=== PATIENT | female | born 1945 | race Caucasian/White ===

== ENCOUNTER 2017-09-10 16:54 | Emergency (ER) | payer MEDICARE ==
[2017-09-10] MEDS ORDERED: NS 0.9% 1000 ML* 1,000 ML IV ONE (17:35)
--- NOTE | 2017-09-10 18:04 | ED ---
John Linn Julia, scribed for Leilani Abrams MD on 09/10/17 at 1710 . Abdominal Pain/Female - HPI Summary HPI Summary: This patient is a 71 year old F BIBA to [facility] with a chief complaint sudden severe diffuse abdominal pain lasting 30 -45 minutes with diaphoresis. She states she took a couple of TUMS and lied down and napped after pain slightly resolved. She states pain worsening again after waking. Patient describes BM as rabbit poop for the past few weeks. Pt had BM this morning - no blood, no black. Patient denies nausea, vomiting, bloody or black stool, constipation, dysuria, vaginal prolapse, or new back pain. She states her pain is currently resolved but states she feels bloated. She believes symptoms will be aggravated by walking and movement. Patient has a history of gallstones, without disease of the gallbladder. A colonoscopy in 2004 was negative. Patient s PCP is Dr. Gardner - pt had an appt on Wednesday with him regarding her stools. Pt states does not feel constipated. Pt states no h.o similar No h.o abdominal surgery Medications and allergies reviewed. - History of Current Complaint Chief Complaint: EDAbdPain Stated Complaint: ABD PAIN Time Seen by Provider: 09/10/17 16:56 Hx Obtained From: Patient Onset/Duration: Sudden Onset, Lasting Minutes - 30-45, Resolved Severity Initially: Severe Severity Currently: Mild Pain Intensity: 1 Location: Discrete At: LUQ, Discrete At: LLQ Radiates: No Character: Other: - "bloating" Aggravating Factor(s): Movement - and walking Alleviating Factor(s): Position, Antacids, Other: - lying down Associated Signs and Symptoms: Positive: Negative - vaginal prolapse, Diaphoresis, Other: - chagnes in BM and "irreugular pulse". Negative: Back Pain , Constipation, Blood in Stool, Urinary Symptoms, Nausea, Vomiting, Diarrhea Allergies/Adverse Reactions: Allergies Allergy/AdvReac Type Severity Reaction Status Date / Time No Known Allergies Allergy Verified 10/14/15 13:54 PMH/Surg Hx/FS Hx/Imm Hx Previously Healthy: Yes Cardiovascular History: Reports: Hx Hypertension Respiratory History: Reports: Hx Asthma GI History: Reports: Other GI Disorders - gall stones Musculoskeletal History: Reports: Hx Back Problems Denies: Hx Osteoporosis - Cancer History Hx Chemotherapy: No Hx Radiation Therapy: No - Surgical History Surgery Procedure, Year, and Place: denies Infectious Disease History: No Infectious Disease History: Denies: Traveled Outside the [place] in Last 30 Days - Family History Known Family History: Negative: Cardiac Disease, Diabetes - Social History Occupation: Retired Lives: Alone Alcohol Use: Occasionally Hx Substance Use: No Substance Use Type: Reports: None Hx Tobacco Use: Yes - many years ago Smoking Status (MU): Former Smoker Type: Cigarettes Review of Systems Positive: Skin Diaphoresis Positive: Other - "irregular pulse" Gastrointestinal: Negative - constipation, bloody/black stool, Other - stool changes - "rabbit poop" and "bloating" Positive: Abdominal Pain. Negative: Vomiting, Diarrhea, Nausea Genitourinary: Negative - vaginal prolapse Positive: no symptoms reported. Negative: dysuria Negative: Myalgia - new back pain All Other Systems Reviewed And Are Negative: Yes Physical Exam Triage Information Reviewed: Yes Vital Signs On Initial Exam: Initial Vitals Temp Pulse Resp BP Pulse Ox 98.6 F 70 18 204/84 97 09/10/17 16:58 09/10/17 16:58 09/10/17 16:58 09/10/17 16:58 09/10/17 16:58 Vital Signs Reviewed: Yes Appearance: Positive: Well-Appearing, No Pain Distress, Well-Nourished Skin: Positive: Warm, Skin Color Reflects Adequate Perfusion, Dry Head/Face: Positive: Normal Head/Face Inspection Eyes: Positive: Normal, EOMI, JOE ENT: Positive: Normal ENT inspection, Hearing grossly normal, Pharynx normal, TMs normal Neck: Positive: Supple, Nontender, No Lymphadenopathy Respiratory/Lung Sounds: Positive: Clear to Auscultation, Breath Sounds Present , Decreased Breath Sounds Cardiovascular: Positive: Normal, RRR Abdomen Description: Positive: No Organomegaly, Soft. Negative: Nontender - + TTP LLQ no guarding, no rebound abd soft + BS Bowel Sounds: Positive: Present Musculoskeletal: Positive: Normal Neurological: Positive: Normal, Sensory/Motor Intact, Alert, Oriented to Person Place, Time Psychiatric: Positive: Normal AVPU Assessment: Alert - Betito Coma Scale Best Eye Response: 4 - Spontaneous Best Motor Response: 6 - Obeys Commands Best Verbal Response: 5 - Oriented Coma Scale Total: 15 Diagnostics - Vital Signs Vital Signs Temp Pulse Resp BP Pulse Ox 09/10/17 17:06 74 97 09/10/17 16:58 98.6 F 70 18 204/84 97 - Laboratory Result Diagrams: 09/10/17 17:55 09/10/17 17:55 Lab Statement: Any lab studies that have been ordered have been reviewed, and results considered in the medical decision making process. - EKG No standard instances Cardiac Rate: NL EKG Rhythm: Sinus Rhythm ST Segment: Normal Ectopy: None Re-Evaluation - Re-Evaluation 1 Re-Evaluation Time: 18:15 Comment: Patient is slightly nauseated. Pt decline nausea meds while drinking contrast. Second Eval Re-Evaluation Time: 19:00 Change: Worse - Pt with increased nausea and discomfort following contrast requesting analgesia CT pending pt signed out Dr. Henley Abdominal Pain Fem Course/Dx - Course Course Of Treatment: Pt episode of severe diffuse abd pain today starting after lunch. Pt states sx improved with rest but returned. Pt reports little relief with TUMS, flatus - called EMS. Pain has now improved - continues with movement. Pt with LLQ pain on exam. will check labs, urine, CT. pt declined analgesia or antiemetic at this time - Diagnoses Provider Diagnoses: Abdominal pain Discharge - Sign-Out/Discharge Documenting (check all that apply): Sign-Out Patient Signing out patient TO: Josias Henley - 1899 CT, urine pending - Discharge Plan Referrals: Tata Gardner MD [Primary Care Provider] - The documentation as recorded by the John vazquez Julia accurately reflects the service I personally performed and the decisions made by , Leilani Abrams MD.
[2017-09-10 18:22] LABS: ABS Basophils 0 10^3/ul (0-0.2); ABS Eosinophils 0 10^3/ul (0-0.6); ABS Lymphocytes 1.3 10^3/ul (1.0-4.8); ABS Monocytes 0.4 10^3/ul (0-0.8); ABS Neutrophils 5.1 10^3/ul (1.5-7.7); ABS Nucleated RBC 0 10^3/ul; Eosinophil % 0.5 % (0-6); Hematocrit 40 % (35-47); Lymphocyte % 19.5 % (25-47); Mean Corpuscular HGB Conc 35 g/dl (31-36); Mean Corpuscular Hemoglobin 33 pg (27-31); Mean Corpuscular Volume 96 fL (80-97); Mean Platelet Volume 7.7 um3 (7.4-10.4); Nucleated Red Blood Cells % 0; Platelet Count 258 10^3/ul (150-450); Red Blood Count 4.22 10^6/ul (4.0-5.4); Red Cell Distribution Width 14 % (10.5-15); White Blood Count 6.9 10^3/ul (3.5-10.8)
[2017-09-10 18:27] LABS: Urine Appearance Clear; Urine Blood Negative (Negative); Urine Color Straw; Urine Ketones Negative (Negative); Urine Protein Negative (Negative); Urine Specific Gravity 1.009 (1.010-1.030); Urine Urobilinogen Negative (Negative)
[2017-09-10 18:38] LABS: EGFR Non-African American 52.1 (>60)
[2017-09-10] MEDS ORDERED: Ondansetron INJ* 2 MG/ML VIAL IV ONE ×2 (19:06→19:35)
[2017-09-10] MEDS ORDERED: Morphine INJ* 2 MG/ML 1 ML CARPUJECT IV ONE (19:06)
[2017-09-10] MEDS ORDERED: Iodixanol* (CONTRAST) 320 MG/ML 100 ML SDV IV ONE (19:24)
[2017-09-10] MEDS ORDERED: Morphine INJ* 4 MG/ML 1 ML SYRINGE (NEW SYRINGE VERSION) IV ONE (19:35)
[2017-09-10] MEDS ORDERED: Famotidine IV* 10 MG/ML 2 ML (20 mg) IV SLOW PU ONE (19:36)
--- NOTE | 2017-09-10 20:51 | RAD ---
CLINICAL HISTORY: Abdominal pain, left lower quadrant pain COMPARISON: None TECHNIQUE: Multiple contiguous axial CT scans were obtained of the abdomen and pelvis after the administration of intravenous contrast. Coronal and sagittal multiplanar reformations are submitted for review. Oral contrast was administered. Delayed images were obtained through the abdomen and pelvis. FINDINGS: LUNG BASES: The lung bases are clear. LIVER: The liver is diffusely low in attenuation compared to the spleen. There are no focal hepatic parenchymal masses. BILE DUCTS: There is no intrahepatic or extrahepatic biliary dilatation. GALLBLADDER: Multiple gallstones are noted. There is no pericholecystic inflammatory change. PANCREAS: The pancreas is normal, without mass or ductal dilatation. SPLEEN: Normal in size and appearance. UPPER GI TRACT: Evaluation of the gastrointestinal tract is limited by incomplete gastric distention. The upper GI tract is unremarkable. SMALL BOWEL AND MESENTERY: The small bowel is normal in contour, course, and caliber. There is no obstruction or dilatation. COLON: The colon is normal in contour, course, caliber. There is no pericolonic inflammatory change. ADRENALS: Normal bilaterally. KIDNEYS: The kidneys are normal in shape, size, contour, and axis. There is no hydronephrosis or nephrolithiasis. BLADDER: The bladder is smooth in contour. PELVIC ORGANS: The uterus and adnexa are grossly normal for technique. AORTA: There is calcific atherosclerotic disease of the abdominal aorta and its branches, without aneurysmal dilatation IVC: Unremarkable LYMPH NODES: There is no lymphadenopathy by size criteria. ABDOMINAL WALL: There is no evidence for abdominal wall hernia. BONES AND SOFT TISSUES: There is a scoliotic curvature of the spine. There is grade 1 anterolisthesis of L4 on L5. Degenerative changes are noted of the spine. OTHER: None IMPRESSION: 1. FATTY INFILTRATION OF THE LIVER. 2. CHOLELITHIASIS. 3. ATHEROSCLEROSIS.
[2017-09-10 21:10] VITALS: BP 177/81
--- NOTE | 2017-09-11 20:25 | ED ---
Moise Linn Sixian, scribed for Josias Henley MD on 09/10/17 at 1928 . Re-Evaluation - Re-Evaluation 1 Re-Evaluation Time: 18:15 Comment: Patient is slightly nauseated. Pt decline nausea meds while drinking contrast. Second Eval Re-Evaluation Time: 19:37 Change: Worse - Pt states after drinking contrast she is beginning to have return of abdominal pain. pt states she is feeling fullness in her abdomen and pain in RUQ. Pt states also associated mild nausea. Pt repeat abdominal exam nontender, soft, NABS, negative Bee's and McBurney's pt tenderness. will give IV analgesia and IV antiemetic. Will await CT abd/pel. Third Eval Re-Evaluation Time: 21:13 Change: Improved - pt abdominal pain resolved. pt tolerating po without difficulty. pt resting comfortably in bed. Pt repeat abdominal exam NT/ND NABS. Pt symptoms consistent with colitis vs. enteritis vs gastritis. Plan for symptomatic tx with close f/u. pt Course/Dx - Course Course Of Treatment: Pt episode of severe diffuse abd pain today starting after lunch. Pt states sx improved with rest but returned. Pt reports little relief with TUMS, flatus - called EMS. Pain has now improved - continues with movement. Pt with LLQ pain on exam. will check labs, urine, CT. pt declined analgesia or antiemetic at this time - Diagnoses Provider Diagnoses: Abdominal pain Discharge - Sign-Out/Discharge Documenting (check all that apply): Discharge, Receiving Sign-Out Receiving patient FROM: Leilani Abrams - Pending CT A/P, awaiting disposition. - Discharge Plan Condition: Improved Disposition: HOME Prescriptions: Dicyclomine CAP* [Bentyl CAP*] 10 mg PO TID PRN #10 cap PRN Reason: Pain Ondansetron TAB* [Zofran 4 MG Tab*] 4 mg PO Q6H PRN #6 tab PRN Reason: Nausea Patient Education Materials: Abdominal Pain (ED), Gas and Bloating (ED) Referrals: Tata Gardner MD [Primary Care Provider] - 2 Days - Billing Disposition and Condition Condition: IMPROVED Disposition: HOME The documentation as recorded by the Moise vazquez Sixian accurately reflects the service I personally performed and the decisions made by me, Josias Henley MD.
== END 2017-09-10 21:50 | disposition home or self-care (01) ==
LOC: ED 16:54
DX: R10.32 Left lower quadrant pain (principal); K80.20 Calculus of gallbladder without cholecystitis without obstruction; Z87.891 Personal history of nicotine dependence
CPT/HCPCS: 36415; 74177; 80053; 81003; 83605; 83690; 83735; 84484; 85025; 93005; 96374; 96375; 99283; J2270; J2405; Q9967

== ENCOUNTER 2017-12-27 06:23 | Day surgery (SDC) | payer MEDICARE ==
[~2017-12-27 06:23] MED LIST: Acetaminophen TAB* 325 MG PO PRN; Buffered Lidocaine 0.9% SYRIN* 5 ML/SYR SYRINGE INTRADERM ONE
[2017-12-27] MEDS ORDERED: fentaNYL* 50 MCG/ML 2 ML VIAL (100 MCG VIAL) ONE (07:17)
[2017-12-27] MEDS ORDERED: Midazolam* 1 MG/ML 2 ML VIAL (2 MG) ONE (07:17)
[2017-12-27 08:07] VITALS: BP 152/76
[2017-12-27] MEDS ORDERED: Neomycin/Polymy/Dex OPHTH.OIN* 3.5 GM ONE (09:04)
[2017-12-27] MEDS ORDERED: Cyclopentolate 1% OPTH.SOL* 2 ML BTL ONE (09:04)
[2017-12-27] MEDS ORDERED: Ketorolac 0.5% OPHTH (NF) 0.5 % 5 ML BTL ONE (09:04)
[2017-12-27] MEDS ORDERED: Lidocaine 1%* 5 ML VIAL ONE (09:04)
[2017-12-27] MEDS ORDERED: acetaZOLAMIDE TAB* 250 MG ONE (09:04)
[2017-12-27] MEDS ORDERED: Phenylephrine 2.5% OPTH.SOL* 2 ML BTL ONE (09:04)
[2017-12-27] MEDS ORDERED: Tropicamide 1% OPTH.SOL* BTL ONE (09:04)
[2017-12-27] MEDS ORDERED: Tetracaine 0.5% OPTH.SOL 4 ML* 1 DROP BTL ONE (09:04)
[2017-12-27] MEDS ORDERED: Povidone Iodine 5% OPTH* 30 ML BTL ONE (09:04)
--- NOTE | 2017-12-28 02:45 | OP ---
DATE OF OPERATION: 12/27/17 - [facility] DATE OF : 43 SURGEON: Aniket Abreu MD ANESTHESIA: Monitored anesthesia care. PRE-OP DIAGNOSIS: Cataract, left eye. POST-OP DIAGNOSIS: Cataract, left eye. OPERATIVE PROCEDURE: Extracapsular cataract extraction of the left eye with intraocular lens implant. IMPLANTS: SN60WF 25.0 diopter lens to the left eye. COMPLICATIONS: None. DESCRIPTION OF PROCEDURE: The patient was given phenylephrine 2.5% and cyclopentolate 1% eye drops to the operative eye in the preoperative area. The patient was taken to the operating room where a time-out was taken to identify the correct patient, site, and side of the surgery. The patient's left eye was prepped and draped in the usual sterile fashion with 5% Betadine. A second time -out was taken to verify the correct patient, site and side of the surgery and correct lens implant. A lid speculum was placed to the left eye. A 1-mm paracentesis blade was used to make a clear corneal incision in the inferotemporal position. Preservative-free 1% lidocaine was injected into the anterior chamber. DisCoVisc was then injected into the anterior chamber. A 2.75-mm keratome blade was used to make a triplanar incision at the superotemporal position. A cystotome initiated a capsulorrhexis, which was completed with Utrata forceps in a continuous and curvilinear manner. Hydrodissection of the lens was performed with BSS on a cannula. The lens could be spun in the capsular bag. The phacoemulsification handpiece was used with a [id number] technique to remove the nucleus with 29.17 CDE. The I /A handpiece then removed the residual cortical lens material. DisCoVisc was injected to inflate the capsular bag. The planned SN60WF 25.0 diopter lens was injected into the capsular bag. The residual DisCoVisc was removed from the eye with the I/A handpiece. The corneal incisions were hydrated and no leaks occurred at physiologic pressure around 20 mmHg per palpation. The lid speculum was removed and drapes removed. Maxitrol ointment was placed on the surface of the operative eye. Adhesive patch and shield were then placed on the operative eye. The patient was taken to the postoperative area in stable condition. [id number]/[facility] #: [id number] MTDJustino
== END 2017-12-27 08:13 | disposition home or self-care (01) ==
LOC: OREAST 06:23
PROVIDERS: ATTEND Student in an Organized Health Care Education/Training Program
DX: H25.811 Combined forms of age-related cataract, right eye (principal); H43.811 Vitreous degeneration, right eye; E78.5 Hyperlipidemia, unspecified; I10 Essential (primary) hypertension; E78.2 Mixed hyperlipidemia; E03.9 Hypothyroidism, unspecified; M81.0 Age-related osteoporosis without current pathological fracture; M25.559 Pain in unspecified hip; J45.909 Unspecified asthma, uncomplicated; I70.0 Atherosclerosis of aorta; F41.8 Other specified anxiety disorders
CPT/HCPCS: A9270-GY; J2250; J3010; V2632

== ENCOUNTER 2018-01-03 06:24 | Day surgery (SDC) | payer MEDICARE ==
[2018-01-03] MEDS ORDERED: Midazolam* 1 MG/ML 2 ML VIAL (2 MG) ONE (07:20)
[2018-01-03 08:00] VITALS: BP 152/84
[2018-01-03] MEDS ORDERED: Cyclopentolate 1% OPTH.SOL* 2 ML BTL ONE (09:31)
[2018-01-03] MEDS ORDERED: Tetracaine 0.5% OPTH.SOL 4 ML* 1 DROP BTL ONE (09:31)
[2018-01-03] MEDS ORDERED: acetaZOLAMIDE TAB* 250 MG ONE (09:31)
[2018-01-03] MEDS ORDERED: Tropicamide 1% OPTH.SOL* BTL ONE (09:31)
[2018-01-03] MEDS ORDERED: Neomycin/Polymy/Dex OPHTH.OIN* 3.5 GM ONE (09:31)
[2018-01-03] MEDS ORDERED: Ketorolac 0.5% OPHTH (NF) 0.5 % 5 ML BTL ONE (09:31)
[2018-01-03] MEDS ORDERED: Povidone Iodine 5% OPTH* 30 ML BTL ONE (09:31)
[2018-01-03] MEDS ORDERED: Phenylephrine 2.5% OPTH.SOL* 2 ML BTL ONE (09:31)
[2018-01-03] MEDS ORDERED: Lidocaine 1%* 5 ML VIAL ONE (09:31)
--- NOTE | 2018-01-03 13:03 | OP ---
DATE OF OPERATION: 01/03/18 - [facility] DATE OF : 43 SURGEON: Aniket Abreu MD ANESTHESIA: Monitored anesthesia care. PRE-OP DIAGNOSIS: Cataract, right eye. POST-OP DIAGNOSIS: Cataract, right eye. OPERATIVE PROCEDURE: Extracapsular cataract extraction of the right eye with intraocular lens implant. IMPLANTS: SN60WF 24.5 diopter lens to the right eye. COMPLICATIONS: None. DESCRIPTION OF PROCEDURE: The patient was given phenylephrine 2.5% and cyclopentolate 1% eye drops to the operative eye in the preoperative area. The patient was taken to the operating room where a time-out was taken to identify the correct patient, site, and side of surgery. The patient's right eye was prepped and draped in the usual sterile fashion with 5% Betadine. A second time -out was taken to verify the correct patient, site, and side of surgery, and correct lens implant. A lid speculum was placed to the right eye. A 1 mm paracentesis blade was used to make a clear corneal incision in the superotemporal position. Preservative free 1% lidocaine was injected into the anterior chamber. DisCoVisc was then injected into the anterior chamber. A 2.75 mm keratome blade was used to make a triplanar incision at the inferotemporal position. A cystotome initiated a capsulorrhexis, which was completed with Utrata forceps in a continuous and curvilinear manner. Hydrodissection of the lens was performed with BSS on a cannula. The lens could be spun in a capsular bag. The phacoemulsification handpiece was used with a divide and conquer technique to remove the nucleus with 20.02 CDE. The I /A handpiece was then removed with a residual cortical lens material. DisCoVisc was injected to inflate the capsular bag. The planned SN60WF 24.5 diopter lens was injected into the capsular bag. The residual DisCoVisc was removed from the eye with a I/A handpiece. The corneal incisions were hydrated and no leaks occurred at physiologic pressure around 20 mmHg per palpation. The lid speculum was removed and drapes removed. Maxitrol ointment was placed to the surface of the operative eye. An adhesive patch and shield was then placed on the operative eye. The patient was taken to the postoperative area in stable condition. [id number]/[facility] #: [id number] MTDD
== END 2018-01-03 07:59 | disposition home or self-care (01) ==
LOC: OREAST 06:24
PROVIDERS: ATTEND Student in an Organized Health Care Education/Training Program
DX: H25.811 Combined forms of age-related cataract, right eye (principal); H43.811 Vitreous degeneration, right eye; Z87.891 Personal history of nicotine dependence; J45.909 Unspecified asthma, uncomplicated; I10 Essential (primary) hypertension; E78.2 Mixed hyperlipidemia; E03.9 Hypothyroidism, unspecified; J30.89 Other allergic rhinitis; M81.0 Age-related osteoporosis without current pathological fracture; L20.9 Atopic dermatitis, unspecified; I70.0 Atherosclerosis of aorta; A60.00 Herpesviral infection of urogenital system, unspecified; F41.9 Anxiety disorder, unspecified; M15.9 Polyosteoarthritis, unspecified; M54.5 Low back pain; E55.9 Vitamin D deficiency, unspecified; R53.83 Other fatigue; R51 Headache; R04.0 Epistaxis
CPT/HCPCS: A9270-GY; J2250; V2632

== ENCOUNTER 2018-06-11 10:50 | Inpatient (IN) | payer MEDICARE ==
--- NOTE | 2018-06-11 11:13 | ED ---
Neurological HPI - HPI Summary HPI Summary: This patient is a 72 year old female brought in by [facility] to [facility] with a chief complaint of stroke-like symptoms since 0950 today. Patient has a history of CVA, noted 02/25/18 and 05/16/2018 with acute ischemic damage, treated at [facility]. During both strokes, patient states she felt weakness, tingling, and numbness all around the left side. Today, patient states that she experienced the same symptoms, but milder. She specifically notes tingling and weakness in her left lower extremity, from her toes to her knee. Tingling and weakness noted to a lesser degree up her left arm and left face. Patient presents with steady gait in the ED, but mentions that she was very wobbly this morning. Patient does not exhibit any facial droop while conversing. Symptoms aggravated by nothing. Symptoms alleviated by nothing. 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 Patient denies headache, neck pain, slurred speech, trouble thinking/finding words. Patient additionally denies chest pain, SOB, abd pain, nausea, vomiting. Patient denies surgical history. Patient has a PMHx of thyroid abnormality, HTN , HLD, gallstones, and possible herpes. Patients has FHx of CVA on her mother s side. Vital signs while in room: HR 69 bpm, BP 169/93. Patient has a weight of 139.9 lbs. Patient was seen at 1115. Pt has a daughter Kayy, who called in, but was not physically present in the ED. Home Medications Medication Instructions Recorded Confirmed Type ALPRAZolam TAB* [Xanax TAB*] 0.25 mg PO Q8H PRN 06/11/18 06/11/18 History Acyclovir* [Zovirax 400 MG TAB*] 800 mg PO QID 06/11/18 06/11/18 History Aspirin EC TAB* [Ecotrin EC Low 324 mg PO DAILY 06/11/18 06/11/18 History Dose 81 MG*] Atorvastatin* [Lipitor*] 40 mg PO 2100 06/11/18 06/11/18 History Levothyroxine TAB* [Synthroid TAB*] 75 mcg PO 0800 06/11/18 06/11/18 History Losartan TAB* [Cozaar TAB*] 12.5 mg PO DAILY 06/11/18 06/11/18 History - History of Current Complaint Stated Complaint: WEAKNESS Hx Obtained From: Patient, Other: - [place] obtained Hx Last Menstrual Period: N/A Onset/Duration: Sudden Onset, Started hours ago, Still Present Timing: Sudden Onset Onset Severity: Mild Current Severity: Mild Neurological Deficit Location: Facial - left, LUE, LLE Pain Intensity: 0 Pain Scale Used: 0-10 Numeric Character: Numbness/Tingling Aggravating: Nothing Alleviating: Nothing Associated Signs and Symptoms: Positive: Negative - headache, neck pain, slurred speech, trouble thinking/finding words, chest pain, SOB, abd pain, nausea, vomiting, Numbness. Negative: Headache, Impaired Speech, Nausea/ Vomiting, Neck Pain/Stiffness, Chest Pain, Shortness of Breath TPA Considered: No - minor deficit, risks greater than benefits, discussed with Dr. Billy Similar Episode/Dx as: CVA x 2: 02/25/18, 05/16/18 Related Hx: ASA - Allergy/Home Medications Allergies/Adverse Reactions: Allergies Allergy/AdvReac Type Severity Reaction Status Date / Time amoxicillin [From Augmentin] Allergy Flushing Verified 06/11/18 11:14 clavulanic acid Allergy Flushing Verified 06/11/18 11:14 [From Augmentin] Home Medications: Home Medications ALPRAZolam TAB* [Xanax TAB*] 0.25 mg PO Q8H PRN 06/11/18 [History Confirmed ] Acyclovir* [Zovirax 400 MG TAB*] 800 mg PO DAILY 06/11/18 [History Confirmed ] Aspirin EC TAB* [Ecotrin EC Low Dose 81 MG*] 324 mg PO DAILY 06/11/18 [History Confirmed 06/11/18] Atorvastatin* [Lipitor*] 40 mg PO 2100 06/11/18 [History Confirmed 06/11/18] Levothyroxine TAB* [Synthroid TAB*] 75 mcg PO 0800 06/11/18 [History Confirmed 06/11/18] Losartan TAB* [Cozaar TAB*] 12.5 mg PO DAILY 06/11/18 [History Confirmed ] PMH/Surg Hx/FS Hx/Imm Hx Previously Healthy: No Endocrine/Hematology History: Reports: Hx Thyroid Disease Cardiovascular History: Reports: Hx Hypercholesterolemia, Hx Hypertension GI History: Reports: Hx Gall Bladder Disease - gallstones EENT History: Denies: Hx Deafness Neurological History: Reports: Hx CVA - per pt 02/25/18, 05/16/18 - Surgical History Surgery Procedure, Year, and Place: no surgical hx per pt Infectious Disease History: No Infectious Disease History: Denies: Traveled Outside the [place] in Last 30 Days - Family History Known Family History: Positive: Other - CVA - mother - Social History Occupation: Retired Lives: With Family Alcohol Use: None Hx Substance Use: No Substance Use Type: Reports: None Hx Tobacco Use: No Smoking Status (MU): Never Smoked Tobacco Review of Systems Negative: Fever Eyes: Negative Negative: Chest Pain Negative: Shortness Of Breath Negative: Abdominal Pain, Vomiting, Nausea Positive: no symptoms reported Skin: Negative Neurological: Negative - trouble thinking/finding words, neck pain Positive: Weakness, Paresthesia, Numbness. Negative: Headache, Slurred Speech Psychological: Normal All Other Systems Reviewed And Are Negative: Yes Physical Exam - Summary Physical Exam Summary: Appearance: Well-appearing, no pain distress, well-nourished Skin: Warm, color reflects adequate perfusion, dry Head: Normal Head/Face inspection, atraumatic Eyes: Conjunctiva clear, PERRL, EOMI, full tracking, no nystagmus ENT: Normal inspection Neck: Supple, no nodes, no JVD, no bruit Respiratory: Lungs clear, normal breath sounds, no respiratory distress Cardio: RRR, No murmur, pulses normal, brisk capillary refill Abdomen: Soft, nontender Bowel sounds: Present Musculoskeletal: Strength Intact/ROM intact, no calf tenderness, no edema. Psychological: Normal Neuro: A&O x3, CN II-XII intact, motor function 5/5, sensation intact, cerebellar normal GCS 15, NIH 1 (left facial numbness) Triage Information Reviewed: Yes Vital Signs On Initial Exam: Initial Vitals Temp Pulse Resp BP Pulse Ox 98.6 F 78 20 169/93 82 06/11/18 10:59 06/11/18 10:59 06/11/18 10:59 06/11/18 10:59 06/11/18 10:59 Vital Signs Reviewed: Yes - [place] Coma Scale Best Eye Response: 4 - Spontaneous Best Motor Response: 6 - Obeys Commands Best Verbal Response: 5 - Oriented Coma Scale Total: 15 Diagnostics - Vital Signs Vital Signs Temp Pulse Resp BP Pulse Ox 06/11/18 10:59 98.6 F 78 20 169/93 82 - Laboratory Result Diagrams: 06/11/18 11:30 06/11/18 11:30 Lab Statement: Any lab studies that have been ordered have been reviewed, and results considered in the medical decision making process. - Radiology CXR Radiology Interpretation Completed By: Radiologist Summary of Radiographic Findings: CXR reveals, per radiologist, IMPRESSION: NO ACTIVE CARDIOPULMONARY DISEASE IS NOTED. ED physician has reviewed this radiology report. - CT CT Brain CT Interpretation Completed By: Radiologist Summary of CT Findings: CT Brain reveals, per radiologist, IMPRESSION: Chronic ischemic White matter change. No intracranial mass or hemorrhage is noted. Findings discussed with Dr. Marroquin at 11:36 AM. ED physician has reviewed this radiology report. - EKG 1108 Cardiac Rate: NL EKG Rhythm: Sinus Rhythm - [address] Segment: Non-Specific Ectopy: None EKG Comparison: Other - no prior to compare Summary of EKG Findings: An EKG, taken 1108, reveals NSR (62 BPM), normal AV IV CT, normal QTc, normal axis, no acute changes. NIH Scale - NIH Scale Level of Consciousness: Alert/Keenly Responsive Ask Patient the Month and His/Her Age: Both Correct Ask Pt to Open/Close Eyes and Tuber Machine Cutter/Release Non-Paretic Hand: Both Correctly Best Gaze (Only Horizontal Eye Movement): Normal Visual Field Testing: No Visual Loss Facial Paresis-Pt to Smile & Close Eyes or Grimace Symmetry: Normal/Symmetrical Motor Function - Right Arm: No Drift-Holds 10 Seconds Motor Function - Left Arm: No Drift-Holds 10 Seconds Motor Function - Right Leg: No Drift-Holds 10 Seconds Motor Function - Left Leg: No Drift-Holds 10 Seconds Limb Ataxia-Must be out of Proportion to Weakness Present: Absent Sensory (Use Pinprick to Test Arms/Legs/Trunk/Face): Pinprick Less on Affected - less on left face Best Language (Describe Picture, Name Items): No Aphasia Dysarthria (Read Several Words): Normal Extinction and Inattention: No Abnormality Total Score: 1 Re-Evaluation - Re-Evaluation First Eval Re-Evaluation Time: 11:40 Change: Unchanged Comment: Dr. Stanley (Neurologist at [place]) spoke with the patient and underwent repeat NIH exam. At 1150, Dr. Stanley does not recommend tPA administration. He recommends admitting the patient. Course/Dx - Course Course Of Treatment: This patient is a 72 year old female brought in by [facility] to [facility] with a chief complaint of stroke-like symptoms since 0950 today. Patient has a history of CVA, noted 02/25/18 and 05/16/2018 with acute ischemic damage. An EKG, taken 1108, reveals NSR (62 BPM), normal AV IV CT, normal QTc, normal axis, no acute changes. CT Brain reveals, per radiologist, IMPRESSION: Chronic ischemic White matter change. No intracranial mass or hemorrhage is noted. Findings discussed with Dr. Marroquin at 11:36 AM. ED physician has reviewed this radiology report. CXR reveals, per radiologist, IMPRESSION: NO ACTIVE CARDIOPULMONARY DISEASE IS NOTED. ED physician has reviewed this radiology report. Bloodwork Obtained. Urinalysis Obtained. Test results with no significant abnormalities except elevated AST, ALT, alk phosphatase with normal T Bili. Pt is on a statin, does not have CHF by exam or xray, and also has hx gallstones but no abd pain, fever. Further eval per hospitalists. Pt described what sounded like CTA at [facility], however upon review of records obtained, no CTA head and neck or carotid ultrasound is noted. Hospitalists will order CTA head and neck. Patient medications reviewed this visit. High blood pressure noted. In the ED course the patient was given NS 0.9% IV bolus. We discussed patient care with Dr. Moore (Neurologist) at 1124 and he recommended calling the patient a Code Puentes. CT was completed at 1126. We discussed patient care with Dr. Stanley (Neurologist) at 1138 and he agreed to directly converse with the patient via video call. At 1150, Dr. Stanley does not recommend tPA administration. He recommends admitting the patient. We discussed patient care with Dr. Miles (Hospitalist) at 1200 and she agreed to admit the patient. Patient will be admitted to the floor by Dr. Miles with a dx of left facial numbness. The patient is agreeable with this plan. We spoke with Kayy Vancewin, patients daughter on the phone number ) at 1218, notifying her on patients status. Consult from Dr. Stanley is reviewed at 1229 and on the chart. - Differential Dx Differential Diagnoses Neuro: Positive: Cerebrovascular Accident, Hypertension, Hypoglycemia, Intracranial Bleed, Medication Reaction, Metabolic Abnormality, Transient Ischemic Attack - Diagnoses Provider Diagnoses: Left facial numbness, Hypertension, poor control, Abnormal LFTs (liver function tests) During the Visit The Following Alert/Code Occurred: Code Schmidt - Physician Notifications Discussed Care Of Patient With: Dominic Moore - Neurologist Time Discussed With Above Provider: 11:23 - We discussed patient care with Dr. Moore (Neurologist) at 1123 and they recommended calling the patient a Code Puentes. - Critical Care Time Critical Care Time: 30-74 min Discharge - Sign-Out/Discharge Documenting (check all that apply): Patient Departure - admit All imaging exams completed and their final reports reviewed: Yes - Discharge Plan Condition: Stable Disposition: ADMITTED TO [facility] - Billing Disposition and Condition Condition: STABLE Disposition: Admitted to [facility] - Attestation Statements Document Initiated by Consueloe: Yes Documenting Scribe: Donnie Fang Provider For Whom Antoni is Documenting (Include Credential): Liza Marroquin MD Scribe Attestation: IDonnie, scribed for Liza Marroquin MD on 06/11/18 at 1659. Scribe Documentation Reviewed: Yes Provider Attestation: The documentation as recorded by the Donnie vazquez accurately reflects the service I personally performed and the decisions made by me, Liza Marroquin MD Status of Scribe Document: Viewed Consult Consult: We discussed patient care with Dr. Moore (Neurologist) at 1123 and he recommended calling the patient a Code Puentes. We discussed patient care with Dr. Stanley (Neurologist) at 1138 and he agreed to directly converse with the patient via video call. Following examination, Dr. Stanley advises no indication for tPA administration and recommends admitting the patient for further evaluation. We discussed patient care with Dr. Miles (Hospitalist) at 1200 and she agreed to admit the patient.
[2018-06-11] MEDS ORDERED: NS 0.9% 1000 ML* 1,000 ML IV ONE (11:17)
[2018-06-11 11:44] LABS: ABS Basophils 0 10^3/ul (0-0.2); ABS Eosinophils 0.2 10^3/ul (0-0.6); ABS Lymphocytes 1.2 10^3/ul (1.0-4.8); ABS Monocytes 0.4 10^3/ul (0-0.8); ABS Neutrophils 3.9 10^3/ul (1.5-7.7); ABS Nucleated RBC 0 10^3/ul; Eosinophil % 3.6 %; Hematocrit 39 % (35-47); Hemoglobin 13.2 g/dl (12.0-16.0); Lymphocyte % 20.2 %; Mean Corpuscular HGB Conc 34 g/dl (31-36); Mean Corpuscular Hemoglobin 33 pg (27-31); Mean Corpuscular Volume 97 fL (80-97); Mean Platelet Volume 7.9 fL (7.4-10.4); Nucleated Red Blood Cells % 0; Platelet Count 262 10^3/ul (150-450); Red Blood Count 4.02 10^6/ul (4.00-5.40); Red Cell Distribution Width 14 % (10.5-15); White Blood Count 5.7 10^3/ul (3.5-10.8)
[2018-06-11 11:53] LABS: Activated Partial Thrombo Time 42.6 seconds (26.0-36.3); INR 0.96 (0.77-1.02)
[2018-06-11 12:12] LABS: Albumin 4.1 g/dL (3.2-5.2); Albumin/Globulin Ratio 1.1 (1-3); BUN/Creatinine Ratio 14.7 (8-20); Calcium 9.6 mg/dL (8.6-10.3); EGFR Non-African American 57.7 (>60); Globulin 3.6 g/dL (2-4); HDL Cholesterol 52.7 mg/dL; Potassium 3.6 mmol/L (3.5-5.0); Total Bilirubin 0.6 mg/dL (0.2-1.0); Total Protein 7.7 g/dL (6.4-8.9)
[2018-06-11 12:19] LABS: Urine Appearance Clear; Urine Bilirubin Negative (Negative); Urine Blood Negative (Negative); Urine Color Straw; Urine Glucose Negative (Negative); Urine Ketones Negative (Negative); Urine Nitrite Negative (Negative); Urine Protein Negative (Negative); Urine Specific Gravity 1.004 (1.010-1.030); Urine Urobilinogen Negative (Negative)
[2018-06-11] MEDS ORDERED: Acetaminophen TAB* 325 MG PO PRN (14:20)
[2018-06-11] MEDS ORDERED: ALPRAZolam TAB* 0.25 MG PO PRN (14:25)
[2018-06-11] MEDS ORDERED: Enoxaparin(*) 40 MG/0.4 ML SYR SUBCUT SCH (15:00)
[2018-06-11] MEDS ORDERED: Clopidogrel TAB* 75 MG PO SCH (15:00)
[2018-06-11] MEDS ORDERED: Iodixanol* (CONTRAST) 320 MG/ML 100 ML SDV IV ONE (16:23)
--- NOTE | 2018-06-11 16:52 | HP ---
CC: Dr. Moore; Dr. Gardner * HISTORY AND PHYSICAL: DATE OF ADMISSION: 06/11/18 PROVIDER: Senait Chun NP PRIMARY CARE PROVIDER: Dr. Gardner. ATTENDING PHYSICIAN WHILE IN THE HOSPITAL: Dr. Susana Miles * (dictated by Senait Chun NP). CHIEF COMPLAINT: Left-sided tingling. HISTORY OF PRESENT ILLNESS: Ms. Vee is a 72-year-old female with a past medical history significant for hypertension and CVA, who presented to the emergency room with onset of left-sided tingling from her knee to her toes and in her left arm as well as a heavy fullness sensation on the left side of her face. She does report that these symptoms are similar to her previous symptoms when she was diagnosed with acute stroke, last on 05/16/18. She states that she originally had her first stroke and was seen and evaluated at [facility] [[email or web address] on 01/05 and then again 05/16/18 and both times she was discharged with acute CVA on the right. She did have 1 episode approximately 1 week ago where she reports she was dizziness and felt tingling in her face that subsided after 5 minutes. The patient denies any other symptoms. Denies any recent illnesses or fevers. Denies any chest pain, edema, cough, congestion, or hemoptysis. She denies any nausea, vomiting, diarrhea, or abdominal pain. She denies any hematuria or dysuria. She denies any focal weakness. She does report a tingling sensation to the left arm, left fingers, left lower leg, left toes, and left side of her face. She associates this with a fullness and tingly feeling. She denies any visual complaints, difficulty swallowing, arthralgias, myalgias, rashes, lesions, open sores, psychosis, or anxiety. Due to her symptoms of acute onset of left-sided tingling, we were asked to see and evaluate her for admission. PAST MEDICAL HISTORY: 1. CVA. 2. Hypertension. PAST SURGICAL HISTORY: D and C, cataract surgery. HOME MEDICATIONS: 1. Acyclovir 800 mg p.o. daily. 2. Losartan 12.5 mg p.o. daily. 3. Levothyroxine 75 mcg p.o. daily. 4. Atorvastatin 40 mg p.o. at 2100. 5. Aspirin enteric-coated 324 mg p.o. daily. 6. Alprazolam 0.25 mg p.o. q.8 hours as needed for anxiety. ALLERGIES: Allergy to AUGMENTIN. FAMILY HISTORY: Mother with questionable history of stroke. No reported diabetes or cancer within the family. SOCIAL HISTORY: The patient reports that she quit smoking approximately 15 years ago. Prior to that, she smoked a pack a day for approximately 40 years. Denies any alcohol or illicit drug use. She is . Surrogate decision maker in the event she is unable to make her own decisions is her daughter Kayy. She wishes to be a do not resuscitate. REVIEW OF SYSTEMS: There has been no documented fever. No unintended weight loss. Denies any chest pain or edema. Denies any cough, hemoptysis, or shortness of breath. Denies any nausea, vomiting, or diarrhea. Denies any abdominal pain. Denies any gross hematuria or dysuria. Denies any focal weakness. She does report tingling sensation to the left hand and left lower leg especially in her toes and left side of the face feeling tingly with a fullness sensation. She denies any visual complaints. Denies any dysphagia. Denies any arthralgias, myalgias, rashes, lesions, open sores, psychosis, or anxiety. PHYSICAL EXAMINATION GENERAL: At this time, Ms. Vee is a 72-year-old female. She is sitting on the stretcher in the emergency room. She does not appear to be in any acute distress. She is well nourished and well developed. HEENT: Head is atraumatic, normocephalic. Eyes: EOMs are intact. Sclerae anicteric and not pale. Oral mucosa appeared to be moist. NECK: Supple. LUNGS: Clear to auscultation bilaterally. No wheeze, rales, or rhonchi. CARDIAC: S1, S2. Regular rate and rhythm. No murmurs, rubs, or gallops. ABDOMEN: Soft and nontender. Bowel sounds are present x4. EXTREMITIES: Pedal pulses are +2 bilaterally. She does have 5/5 strength to all 4 extremities. NEUROLOGIC: [id number]-[id number] is intact bilaterally. Push-pull is intact. Finger- to- nose is intact. There is no pronator drift. There is no tremor. Pupils are equal and reactive to light at 2 mm. Speech is clear. Tongue is midline. Smile is equal. Cranial nerves II through XII are grossly intact. There are no gross focal deficits noted. SKIN: Intact. DIAGNOSTIC STUDIES/LAB DATA: WBCs are 5.7, RBCs 4.02, hemoglobin 13.2, hematocrit was 39, platelet count was 262. INR 0.96, APTT was 42.6. Sodium 139 , potassium 3.6, chloride 103, carbon dioxide was 29, anion gap 7, BUN was 14, creatinine 0.95, glucose 96, lactic acid 0.8, calcium 9.6. ASTs were 175, ALTs were 229, alkaline phosphatase was 277. Troponin was negative at 0.00. Triglycerides were 74, cholesterol 124, LDL was 57, HDL was 52.7. Urine straw color, clear, pH was 8.0, specific gravity 1.004. Urine protein, ketones, blood , nitrites, bilirubin, urobilinogen, urine leukocyte esterase, and urine glucose were all negative. She had a CT of the head. Radiologist's impression: Chronic ischemic white matter changes. No intracranial masses or hemorrhage is noted. She had a chest x-ray. No active cardiopulmonary disease. She had an electrocardiogram, which showed sinus arrhythmias at a rate of 62. ASSESSMENT AND PLAN: Ms. Vee is a 72-year-old female with a past medical history significant for recent cerebrovascular accident on 05/16/18 as well as 02/25/18, who presented to the emergency room with left-sided tingling noted to her left lower leg and left hand as well as left-sided facial tingling and fullness. Due to these symptoms, we were asked to evaluate her for admission. She will be admitted inpatient for: 1. Rule out cerebrovascular accident. The patient does have a recent history of cerebrovascular accident, for which she was seen and evaluated at [facility]. We did obtain records from [facility], which showed her last MRI of the brain without contrast on 05/17/18, there was demonstration of restricted diffusion of the precentral gyrus medially on the right side suggestive of chronic infarct. There was a new area of restricted diffusion on the right precentral gyrus lateral to the previous infarct suggestive of a new acute infarct. There was no evidence of hemorrhagic transformation. Redemonstration of multiple foci of susceptibility, loss of bonnie, right temporal lobe, left superior cerebellar hemisphere, bilateral thalami representing microhemorrhages or cavernomas. She also did have a bubble study completed at [facility] [[email or web address] No intraatrial shunting visualized with the bubble study. She had an estimated ejection fraction of 55% to 60% and trace-to- mild tricuspid regurgitation, mild mitral regurgitation, and mild aortic regurgitation. I did consult Dr. Moore who will see the patient in consultation. At this time, I will stop aspirin and start plavix. I am going to hold off on initiating dual platelet therapy due to the possibility of microhemorrhages. 180. At this time, the patient has mild tingling in her left toes and mild tingling in her left fingers. She has no other gross focal deficits noted. I will order a CTA of the head and neck. MRI of the brain. Will continue with neuro checks. 2. Elevated LFT's. I am going to stop statin therapy at this time patient had LFT's drawn the end of April at [facility] during her admission and her levels were within normal limits. I suspect this could be related to her statin therapy. I will also get liver ultrasound to rule other underlying pathology. 3. Hypertension. We will continue on losartan 12.5 mg p.o. daily as previously prescribed. 4. Hypothyroid. She will continue on levothyroxine 75 mcg p.o. daily. 5. Anxiety. I will continue her on alprazolam 0.25 mg p.o. q.8 hours as needed for severe anxiety. 6. DVT: I will place her on Lovenox 40 mg subcu daily. 7. FEN: She can have a heart-healthy, caffeine okay diet. 8. Code status: She is a do not resuscitate. TIME SPENT: Time spent on this admission was 60 minutes, greater than half that time was spent with the patient obtaining my history and physical, the rest of the time was spent going over my plan of care and implementing my plan of care. I have discussed this with my attending Dr. Susana Miles, and she is in agreement with my plan. SENAIT CHUN, DIRECTOR OF CONSERVATION [id number]/[facility] #: [id number] [facility] BRONX HOSPITALJustino
--- NOTE | 2018-06-11 20:32 | CONS ---
NEUROLOGICAL CONSULTATION NOTE: DATE OF CONSULT: 06/11/18 HISTORY OF PRESENT ILLNESS: The patient had a tele stroke consult with Dr Knight today, but I was asked to see for her left-sided tingling and numbness in the left arm, face, and leg. There was slight wobbliness this morning. The stroke neurologist did not think TPA was indicated. The patient has had a CTA, which is pending. Of note, there have been 2 prior strokes, both seen at [facility], one on 02/25/18 and the last one on 05/16/18, both with left-sided symptoms of tingling and numbness as well as some weakness in those cases. There was no residual following these strokes and she was on aspirin and was to get a sleep study, which she has not had yet. Her risk factors have included elevated cholesterol, hypertension, having past history of smoking, but none for about 18 years. MEDICATIONS: Medicines at home include: 1. Acyclovir 800 mg daily. 2. Losartan 12.5 daily. 3. Levothyroxine 75 mcg daily. 4. Atorvastatin 40 mg daily. 5. Aspirin 324 daily. 6. Alprazolam 0.25 q.4 hours p.r.n. anxiety. FAMILY HISTORY: Mother has had a possible past stroke. REVIEW OF SYSTEMS: Negative all 14 spheres. PHYSICAL EXAM: Temperature 97.6, pulse 67, respirations 16, blood pressure 142/ 66. She is alert and oriented with normal speech and comprehension. Cranial nerves II through XII were intact. Fundi were benign. Motor exam revealed normal tone, strength, coordination in gait. Negative pronator drift. Sensation is intact to light touch, although there is some minor subjective difference in how things feel to her on the left arm and hand. Reflexes were 1 and equal. Toes were downgoing. Neck was supple. Chest: Clear. Cardiovascular: Regular rate and rhythm. Abdomen: Soft. Positive bowel sounds. IMAGING DATA: Her MRI scan showed both acute and new right precentral gyral infarct on 05/17/18 without hemorrhagic transformation. There was some evidence on this past MRI scan with microhemorrhages or cavernomas, but this apparently was not commented on by the neurologist. Ejection fraction was 55% to 60% with mild mitral regurgitation, mild aortic regurgitation. PLAN/RECOMMENDATIONS: We will see what her CTA shows, but with her lack of a deficit now, there would be no need for thrombectomy at this point. The MRI scan will be of use to see if there is further stroke and what the distribution is. The stroke seems like it is all in one specific location, so this may be a distal atherosclerotic disease with risk factors being her hypertension, her elevated cholesterol, and her past history of smoking. The concern is whether she has a condition such as cavernous hemangiomas or amyloidosis that could be causing microhemorrhages. Apparently, the MRI scan of the brain showed it, according to the radiologist, but perhaps not according to the neurologist on her last MRI scan, so we will need to get the MRI scan and then decide where to go from there. We are not putting her on aspirin and Plavix because of the concern on the MRI scan, we will switch her to Plavix since she is having repetitive strokes while on aspirin and if there is no hemorrhage on MRI scan, we would have her on both aspirin and Plavix. I have discussed the case with Senait Chun. Thank you for sharing her care. [id number]/[facility] #: [id number] THERESA
[2018-06-11] MEDS ORDERED: Atorvastatin* 40 MG TAB PO SCH (21:00)
[2018-06-12] MEDS: Levothyroxine TAB* 75 MCG TAB PO SCH (05:06)
[2018-06-12 05:28] LABS: ABS Basophils 0.1 10^3/ul (0-0.2); ABS Eosinophils 0.3 10^3/ul (0-0.6); ABS Lymphocytes 1.3 10^3/ul (1.0-4.8); ABS Monocytes 0.6 10^3/ul (0-0.8); ABS Neutrophils 4.1 10^3/ul (1.5-7.7); ABS Nucleated RBC 0 10^3/ul; Eosinophil % 4.2 %; Hematocrit 38 % (35-47); Hemoglobin 12.7 g/dl (12.0-16.0); Lymphocyte % 20.7 %; Mean Corpuscular HGB Conc 33 g/dl (31-36); Mean Corpuscular Hemoglobin 33 pg (27-31); Mean Corpuscular Volume 97 fL (80-97); Nucleated Red Blood Cells % 0.1; Platelet Count 241 10^3/ul (150-450); Red Cell Distribution Width 14 % (10.5-15); White Blood Count 6.3 10^3/ul (3.5-10.8)
[2018-06-12 05:43] LABS: Albumin 3.8 g/dL (3.2-5.2); Albumin/Globulin Ratio 1.1 (1-3); BUN/Creatinine Ratio 17.2 (8-20); Calcium 9.4 mg/dL (8.6-10.3); EGFR Non-African American 63.8 (>60); Globulin 3.4 g/dL (2-4); Indirect Bilirubin 0.3 mg/dL (0.3-1.0); Potassium 3.7 mmol/L (3.5-5.0); Total Bilirubin 0.5 mg/dL (0.2-1.0); Total Protein 7.2 g/dL (6.4-8.9)
[2018-06-12] MEDS: Losartan TAB* 25 MG PO SCH (07:52)
[2018-06-12] MEDS: Acyclovir* 400 MG TAB PO SCH (07:53)
[2018-06-12] MEDS ORDERED: Aspirin EC TAB* 81 MG TAB.EC PO SCH (09:00)
--- NOTE | 2018-06-12 13:13 | PN ---
Subjective Date of Service: 06/12/18 Interval History: Patient seen and examined at bedside. Denies fever, chills, shortness of breath , chest discomfort, N/V/D. Tingling in the left LE has resolved, but continues to have tingling in her left hand. She states that she has a history of gallstones. She also reports a 15 pound weight loss in the past year, but states that she has changed her diet and started to eat healthier. She has recently had a normal colonoscopy. She reports that he is due for a Mammogram. She reports feeling dizziness after standing up earlier. Tele: Sinus rhythm, rate 60-80's Family History: Unchanged from Admission Social History: Unchanged from Admission Past Medical History: Unchanged from Admission Objective Active Medications: Acetaminophen (Tylenol Tab*) 650 mg PO Q4H PRN Reason: FEVER/PAIN Acyclovir (Zovirax Tab*) 800 mg PO DAILY RALF Alprazolam (Xanax Tab*) 0.25 mg PO Q8H PRN Reason: ANXIETY Aspirin (Aspirin Ec Tab*) 324 mg PO DAILY RALF Enoxaparin Sodium (Lovenox(*)) 40 mg SUBCUT Q24H RALF Levothyroxine Sodium (Synthroid Tab*) 75 mcg PO 0600 RALF Losartan Potassium (Cozaar Tab*) 12.5 mg PO DAILY RALF Vital Signs - 8 hr 06/12/18 06/12/18 06/12/18 07:26 07:56 08:00 Temperature 97.7 F Pulse Rate 72 Respiratory 18 18 18 Rate Blood Pressure 148/59 (mmHg) O2 Sat by Pulse 99 99 Oximetry 06/12/18 11:33 Temperature 97.7 F Pulse Rate 76 Respiratory 19 Rate Blood Pressure 136/75 (mmHg) O2 Sat by Pulse 99 Oximetry Oxygen Devices in Use Now: None Appearance: NAD, sitting up in bed Ears/Nose/Mouth/Throat: Mucous Membranes Moist Respiratory: Symmetrical Chest Expansion and Respiratory Effort, Clear to Auscultation Cardiovascular: NL Sounds; No Murmurs; No JVD, RRR Abdominal: NL Sounds; No Tenderness; No Distention Extremities: No Edema Skin: No Rash or Ulcers Neurological: Alert and Oriented x 3, NL Muscle Strength and Tone, - - Smile symmetric, hand polysomnographic technologist equal, tongue midline, dorsi and plantar flex equal bilateral. Able to hold both legs off the bed. Very kraig deepening of the left nasal labial fold. Lines/Tubes/Other Access: Clean, Dry and Intact Peripheral IV - site benign Nutrition: Taking PO's Result Diagrams: 06/12/18 05:19 06/12/18 05:19 Assess/Plan/Problems-Billing Assessment: Ms. Vee is a 72 yo female with PMH significant for past CVA and HTN who presented to the emergency room for left sided tingling and was admitted to rule out CVA. - Patient Problems (1) Tingling Code(s): R20.2 - PARESTHESIA OF SKIN SNOMED Code(s): 626502723 Comment: - Presented with tingling left face, left LE and arm - Neurology consult, input appreciated - Hold on DAP d/t possibilty of microhemorrhages - CTA head/neck: No brach occlusion. Minimal atherosclerosis at the origin of hte internal carotid arteries bilaterally - Previous echo without evidence of PFO - Holding statin at this time d/t elevated LFTs - Continue Plavix - Hold Aspirin for now (2) Elevated LFTs Code(s): R94.5 - ABNORMAL RESULTS OF LIVER FUNCTION STUDIES SNOMED Code(s): 811736292 Comment: - LFTs continue to be elevated - Suspect secondary to statin therapy - Liver ultrasound, pending - Will check CPK and acute hepatitis panel - Continue to hold statin for now (3) HTN (hypertension) Code(s): I10 - ESSENTIAL (PRIMARY) HYPERTENSION SNOMED Code(s): 56718849 Comment: - Mostly normtensive, SBP 130-160's - Continue losartan (4) Hypothyroidism Code(s): E03.9 - HYPOTHYROIDISM, UNSPECIFIED SNOMED Code(s): 69926043 Comment: - Continue levothyroxine (5) Anxiety Code(s): F41.9 - ANXIETY DISORDER, UNSPECIFIED SNOMED Code(s): 40723703 Comment: - Continue alprazolam PRN (6) DVT prophylaxis Code(s): ZHP3262 - SNOMED Code(s): 819002513 Comment: - SCDs (7) Full code status Code(s): Z78.9 - OTHER SPECIFIED HEALTH STATUS SNOMED Code(s): 053364241 Status and Disposition: Inpatient. Discharge to home when medically stable. MRI and echo pending.
[2018-06-12] MEDS: Clopidogrel TAB* 75 MG PO SCH (16:08)
[2018-06-13] MEDS: Levothyroxine TAB* 75 MCG TAB PO SCH (05:50)
[2018-06-13 06:47] LABS: Creatine Kinase 70 U/L (10-223)
[2018-06-13 07:35] LABS: Amylase 59 U/L (29-103)
[2018-06-13] MEDS: Losartan TAB* 25 MG PO SCH (09:21)
[2018-06-13] MEDS: Acyclovir* 400 MG TAB PO SCH (09:21)
[2018-06-13] MEDS: Clopidogrel TAB* 75 MG PO SCH (09:21)
[2018-06-13 09:42] LABS: Hepatitis B Surface Antigen Nonreactive (Nonreactive)
[2018-06-13 10:08] LABS: Hepatitis C Antibody Nonreactive (Nonreactive)
[2018-06-13 11:53] VITALS: BP 136/67
--- NOTE | 2018-06-13 14:16 | PN ---
Subjective Date of Service: 06/13/18 Length of Stay: 2 Days Neurology is following for the evaluation and management of left sided tingling Interval History: The patient feels back to herself. She has an appointment with neurologist Dr. Staples next month. Review of Systems: negative except as noted above Family History: Unchanged from Admission Social History: Unchanged from Admission Past Medical History: Unchanged from Admission Objective Vital Signs 06/12/18 06/12/18 06/12/18 15:38 19:19 20:19 Temperature 98.6 F 98.0 F Pulse Rate 65 67 Respiratory 16 16 16 Rate Blood Pressure 147/68 151/69 (mmHg) O2 Sat by Pulse 98 98 Oximetry 06/12/18 06/12/18 06/12/18 20:46 23:23 23:37 Temperature 98.4 F Pulse Rate 74 Respiratory 18 20 16 Rate Blood Pressure 132/56 (mmHg) O2 Sat by Pulse 99 Oximetry 06/13/18 06/13/18 06/13/18 03:29 07:46 08:00 Temperature 98.0 F 97.9 F Pulse Rate 67 65 Respiratory 20 16 16 Rate Blood Pressure 126/65 158/78 (mmHg) O2 Sat by Pulse 97 98 Oximetry 06/13/18 11:37 Temperature 98.2 F Pulse Rate 65 Respiratory 16 Rate Blood Pressure 136/67 (mmHg) O2 Sat by Pulse 99 Oximetry Intake and Output Last 24 Hours 06/11/18 06/12/18 06/13/18 06/14/18 06:59 06:59 06:59 06:59 Intake Total 1680 960 240 Output Total 0 Balance 1680 960 240 Weight 139 lb 139 lb Intake: IV Fluids 1000 Oral 680 960 240 Output: Urine 0 Other: Estimated Void Medium # Bowel Movements 0 # Voids 1 Oxygen Devices in Use Now: None Neurology Exam: General: Awake, Alert, Oriented x3 HEENT: Normocephalic/atraumatic, sclera anicteric, mucous membranes moist Neck: Supple Chest: Clear to auscultation bilaterally Cardiovascular: Regular rate and rhythm without murmurs, rubs, gallops Abdomen: Soft, nontender/nondistended Extremities: No clubbing, cyanosis, or edema Neurological Findings: Awake, Alert, Oriented x3 Speech: fluent without dysrhythmia, repetition intact Cranial Nerve: PEERL, EOM intact, VFF, no nystagmus, face symmetric bilaterally , facial sensation intact, hearing intact to finger rub bilaterally, palate elevates symmetrically, tongue midline, SCM and Trapezius s/s. Motor: s/s throughout, proximal and distal extremities x4 tone/bulk normal Sensation: intact to LT/PP bilaterally upper and lower extremities Deep Tendon Reflex: 2+ symmetric in the upper/lower extremities, Babinski - down going Finger to nose, rapid alternating movements intact without tremor, no dysdiadochokinesia Result Diagrams: 06/12/18 05:19 06/12/18 05:19 Diagnostic Imaging: Patient Name: JW SAMUEL Medical Record#: [id number] Ordering Physician: Senait Chun NP Acct.#: [id number] : 1945 Age: 72 Sex: F Location: [address] [place] [address] MEDICAL/TELEMETRY Exam Date: 06/13/181426 ADM Status: ADM IN Order Information: MRI BRAIN W/O Accession Number: [id number] CPT: 72372 HISTORY: CVA COMPARISONS: Head CT dated June 11, 2018 TECHNIQUE: The following sequences were obtained of the head: Sagittal T1- weighted images, axial T2-weighted images, axial FLAIR images, axial susceptibility weighted images, axial T1-weighted images. Additionally, axial diffusion-weighted images were obtained with calculated apparent diffusion coefficients. MRI Brain IMPRESSION: 1. DIFFUSE INVOLUTIONAL CHANGE. 2. PROXIMAL VESSEL ISCHEMIC CHANGES WITH MULTIPLE CHRONIC BILATERAL CEREBRAL AND PONTINE LACUNAR INFARCTS. 3. FOCUS OF SUSCEPTIBILITY ARTIFACT WITHIN THE RIGHT PRITI WHICH MAY REPRESENT A SMALL CAVERNOUS ANGIOMA, CAPILLARY TELANGIECTASIA, OR DYSTROPHIC CALCIFICATION. THIS IS LIKELY INCIDENTAL. 1 of 2 Assessment/Plan A/P Possible recrudescence of stroke like symptoms due to hypotension/ hypertension No evidence of a new stroke on MRI. No evidence of microhemorrhages on MRI ASA 81 + Plavix 75 daily until outpatient F/U with Dr. Staples May hold lipitor for now due to high LFTS (LDL 57) until F/U with PMD
--- NOTE | 2018-06-13 21:02 | DS ---
CC: Dr. Tata Gardner; Dr. Pardeep Staples * DISCHARGE SUMMARY: DATE OF ADMISSION: 06/11/18 DATE OF DISCHARGE: 06/13/18 PRIMARY CARE PROVIDER: Tata Gardner MD NEUROLOGIST: Pardeep Staples MD ATTENDING PHYSICIAN: Susana Miles DO * (dictated by Veronica Hall NP) PRIMARY DIAGNOSES: 1. Recrudescence of previous stroke symptoms, manifesting as left-sided tingling, possibly secondary to hypertension. 2. Elevated liver function tests. SECONDARY DIAGNOSES: 1. Hypertension. 2. Hypothyroidism. 3. Anxiety. STUDIES WHILE IN THE HOSPITAL: 1. Brain CT on 06/11/18, reads as chronic ischemic white matter change. No intracranial mass or hemorrhage is noted. 2. Chest x-ray on 06/11/18, reads as no active cardiopulmonary disease. 3. EKG on 06/11/18, shows sinus rhythm with a rate of 62. 4. Head CT on 06/11/18 reads as no branch occlusion is noted. Minimal atherosclerosis at the origin of the internal carotid arteries bilaterally. No vertebral artery dissection or carotid artery dissection is noted. No aneurysmal dilation is noted. 5. Liver ultrasound on 06/12/18 reads as contracted gallbladder. Gallstones cannot be excluded. Echogenic material is noted in the distal common bile duct. The possibility of small common bile duct calculi should be considered. 6. Brain MRI on 06/13/18 reads as diffuse involutional change. Proximal vessel ischemic changes with multiple chronic bilateral cerebral and pontine lacunar infarcts. Focus of susceptibility artifact within the right bonnie, which may represent a small cavernous angioma, capillary telangiectasia, or dystrophic calcification. This is likely incidental. CONSULTATIONS WHILE IN THE HOSPITAL: 1. The patient was seen in consultation by Dr. Moore from neurology on , for stroke-like symptoms. HISTORY OF PRESENT ILLNESS AND HOSPITAL COURSE: Ms. Vee is a 72-year-old female with past medical history of CVAs in February and April of this year , hypertension, anxiety, and hypothyroidism, who presented to the emergency room on 06/11/18 with complaints of left-sided tingling. Please see the history and physical by Senait Chun NP, for a complete summary of the events leading up to this hospitalization. In short, the patient was evaluated at [facility] on 02/25/18 and 05/16/18 and was discharged with acute right-sided CVAs at both of those times. Since then, she has not had any symptoms until approximately 1 week ago, when she reported dizziness and tingling in her face, which subsided after 5 minutes. She presented to the emergency room because of left-sided tingling from her knee to her toes and her left arm as well as a heavy sensation on the left side of her face. She does report that these symptoms are similar to symptoms she experienced with her previous CVAs. In the emergency room, the patient had imaging as noted above; her labs, which were remarkable for elevated LFTs with an AST of 175, ALT of 229 , alk phos of 277. There was a concern for another TIA/CVA and so the patient was admitted by the hospitalist service. She was placed on Plavix and taken off aspirin. Dual platelet therapy was not initiated due to the concern for microhemorrhages. She was taken off her atorvastatin as this was felt to be the likely cause of the elevated LFTs. Blood pressure was elevated with systolics up to the 190s. She was seen in consultation by Dr. Moore who recommended a brain MRI and keeping her on Plavix only because of the concern for repeat CVAs on aspirin therapy, although he noted that there was no hemorrhage on MRI, she could be placed on aspirin and Plavix. On 06/12/18, the patient had a liver ultrasound due to the presence of elevated LFTs, results are noted above. The patient does not drink any alcohol and did have a negative hepatitis panel and so her LFTs are presumed to be elevated secondary to statin use. She continued to have some residual tingling on 06/12/18, though on 06/13/18, she reported that her symptoms were completely resolved and she had no further neurological complaints. She had an MRI this morning, results noted above. It was unremarkable for any acute stroke or any hemorrhages. The patient was seen in consultation by Dr. You from neurology for followup, who recommended that she be placed on dual antiplatelet therapy due to the absence of hemorrhage, following up with Dr. Staples in 1 month, and holding Lipitor at this point due to elevated LFTs. The patient reports feeling well today. She is anxious to return home. She has no focal neurological deficits. Strength is 5/5 bilaterally and sensation is intact bilaterally. The patient is ambulating with a steady gait and there are no further neurological concerns at this point. Ms. Vee is stable for discharge today. Vital signs are as follows: Temp 98.2, heart rate 65, respiratory rate 16, oxygen saturation 99% on room air, blood pressure 136/67. DISCHARGE MEDICATIONS: New medication: 1. Clopidogrel 75 mg p.o. daily. Changed medication: 1. Aspirin 81 mg p.o. daily (previously was 324 mg daily). Continued medications: 1. Acyclovir 800 mg p.o. daily. 2. Alprazolam 0.25 mg p.o. q.8 hours p.r.n. anxiety. 3. Hydrochlorothiazide 25 mg p.o. daily. 4. Levothyroxine 75 mcg p.o. daily. 5. Losartan 12.5 mg p.o. daily. 6. Centrum Silver 1 tab p.o. daily. 7. Metamucil 5 tabs p.o. b.i.d. Discontinued medication: 1. Atorvastatin. DISCHARGE PLAN: Ms. Vee will be discharged home. Activity will be as tolerated. Diet will be heart healthy. Medications are noted above. The patient has been placed on dual antiplatelet therapy with Plavix and baby aspirin. Her atorvastatin has been stopped at this point due to her elevated LFTs. She will need to follow up with her primary care provider to have her LFTs rechecked and to determine if she can restart a statin. I recommended that she follow up with her primary care provider in 4 to 7 days. She reports that she will get an appointment with him this . She will need to follow up with Dr. Staples in 1 month. She has been advised to return to the emergency room or nearest hospital for any worsening of symptoms, shortness of breath, lightheadedness, dizziness, chest discomfort, high fevers, chills, night sweats, loss of consciousness, or any other worrisome signs or symptoms. This is a summarized report of a complex medical history and hospital stay. For further details, please see the entire medical record. TIME SPENT: Approximately 35 minutes were spent on this discharge. VERONICA HALL SYSTEMS SUPPORT SPECIALIST [id number]/[facility] #: [id number] THERESA
== END 2018-06-13 13:52 | disposition home or self-care (01) | DRG 69 ==
LOC: ED 10:50 → MERGE 14:20 → MEDTELE 14:20
PROVIDERS: ADMIT Hospitalist; ATTEND Hospitalist
DX: G45.9 Transient cerebral ischemic attack, unspecified (principal); I10 Essential (primary) hypertension; E78.5 Hyperlipidemia, unspecified; E78.00 Pure hypercholesterolemia, unspecified; R40.2412 Glasgow coma scale score 13-15, at arrival to emergency department; R29.701 NIHSS score 1; R20.2 Paresthesia of skin; E03.9 Hypothyroidism, unspecified; R79.89 Other specified abnormal findings of blood chemistry; I65.23 Occlusion and stenosis of bilateral carotid arteries; I08.3 Combined rheumatic disorders of mitral, aortic and tricuspid valves; F41.9 Anxiety disorder, unspecified; Z98.49 Cataract extraction status, unspecified eye; Z82.3 Family history of stroke; Z88.0 Allergy status to penicillin; Z88.8 Allergy status to other drugs, medicaments and biological substances; Z88.1 Allergy status to other antibiotic agents; Z87.891 Personal history of nicotine dependence; Z86.73 Personal history of transient ischemic attack (TIA), and cerebral infarction without residual deficits; Z79.02 Long term (current) use of antithrombotics/antiplatelets; Z79.82 Long term (current) use of aspirin
CPT/HCPCS: 36415; 70450; 70496; 70498; 70551; 71045; 76705; 80048; 80053; 80061; 80074; 80076; 81003; 82150; 82550; 83605; 83690; 84484; 85025; 85610; 85730; 86850; 86900; 86901; 93005; 99285; A9270-GY; J1650; Q9967